=== PATIENT | male | born 1950 | race Two or more races ===

== ENCOUNTER 2018-10-10 15:10 | Emergency (ER) | payer MEDICARE, OTHER ==
[~2018-10-10] VITALS: Ht 162.6 cm; Wt 61.2 kg
--- NOTE | 2018-10-10 15:38 | NUR ---
ED Nurse Note: PT WAS ABLE TO BE TRIAGED AT THIS TIME DUE TO DELAY REGISTRATION SIGN UP FROM PT.
[2018-10-10 15:40] VITALS: BP 138/86
--- NOTE | 2018-10-10 15:40 | NUR ---
ED Nurse Note: PT WALKED IN TO ER TODAY FROM HOME. AOX4. PT IS [place] SPEAKING BUT CAME IN TO ER TODAY WITH A NOTE FROM DR. ANDREW CHERRY STATING PT C/O CONSTIPATION X 10 DAYS ALONG WITH DIZZINESS AND UNSTEADY GAIT. PT AMBULATED IN TO ER TODAY WITH STEADY GAIT. HYPOACTIVE BOWEL SOUNDS IN ALL QUADRANTS. ABDOMEN NONDISTENDED AND NONTENDER TO PALPATION. LAST BM X 7 DAYS. PT DENIES NAUSEA, VOMITING, DIARRHEA. PT STATES HE HAS BEEN EATING WELL BUT HAS BEEN UNABLE TO PASS BM.
[2018-10-10] MEDS ORDERED: Isovue-300 100ml vial INJ PRN (15:45)
--- NOTE | 2018-10-10 16:04 | NUR ---
ED Nurse Note: RADIOLOGY AT BEDSIDE WITH READI-CAT. READI-CAT CONSUMED. RADIOLOGY WILL RETURN IN 1.5 HOURS.
[2018-10-10 16:07] LABS: BASOPHILS % (AUTO) 1.4 % (0.0-2.0); EOSINOPHILS % (AUTO) 12.4 % (0.0-3.0); HEMATOCRIT 40.8 % (42.0-52.0); HEMOGLOBIN 13.9 G/DL (14.2-18.0); LYMPHOCYTES % (AUTO) 26.5 % (20.0-45.0); MEAN CORPUSCULAR VOLUME 90 FL (80-99); MONOCYTES % (AUTO) 7.5 % (1.0-10.0); NEUTROPHILS % (AUTO) 52.3 % (45.0-75.0); PLATELET COUNT 167 K/UL (150-450); RED BLOOD COUNT 4.55 M/UL (4.70-6.10); RED CELL DISTRIBUTION WIDTH 11.4 % (11.6-14.8); WHITE BLOOD COUNT 6.1 K/UL (4.8-10.8)
[2018-10-10 16:17] LABS: ANION GAP 6 mmol/L (5-15); BLOOD UREA NITROGEN 19 mg/dL (7-18); CALCIUM 8.7 MG/DL (8.5-10.1); CARBON DIOXIDE 30 MMOL/L (21-32); CHLORIDE 105 MMOL/L (98-107); POTASSIUM 3.9 MMOL/L (3.5-5.1); SODIUM 141 MMOL/L (136-145)
[2018-10-10 16:22] LABS: ALANINE AMINOTRANSFERASE 20 U/L (12-78); ALBUMIN 3.8 G/DL (3.4-5.0); ALBUMIN/GLOBULIN RATIO 1.1 (1.0-2.7); ALKALINE PHOSPHATASE 67 U/L (46-116); ASPARTATE AMINO TRANSFERASE 19 U/L (15-37); BILIRUBIN,TOTAL 0.3 MG/DL (0.2-1.0)
[2018-10-10 16:30] LABS: INR 1.3 (0.9-1.1)
[2018-10-10] MEDS ORDERED: Meclizine 25mg tab ORAL ONE (16:30)
--- NOTE | 2018-10-10 16:41 | NUR ---
ED Nurse Note: PT TO CT VIA [facility] FOR HEAD CT.
--- NOTE | 2018-10-10 16:48 | NUR ---
ED Nurse Note: PT BACK FROM CT VIA [facility]
--- NOTE | 2018-10-10 17:13 | Diagnostic Imaging Report ---
Indication: Headache Technique: Contiguous 5 mm thick transaxial imaging of the head obtained in a Siemens Sensation [address] scanner. Soft tissue and bone windows generated. Automatic Exposure Control was utilized. Total Dose length Product (DLP): 1386.[address] Dose Index Volume (CTDIvol): 70.38 mGy Comparison: none Findings: The size and configuration of the cortical sulci, basal cisterns, and ventricles are within normal limits for age. There is no mass effect, midline shift, or edema identified. There is no evidence of acute hemorrhage or abnormal intra-axial or extra-axial fluid collections. The bones and soft tissues are unremarkable. Impression: No mass effect, edema or acute bleed. The CT scanner at [facility] is accredited by the [employer] and the scans are performed using dose optimization techniques as appropriate to a performed exam including Automatic Exposure control.
--- NOTE | 2018-10-10 17:35 | NUR ---
ED Nurse Note: PT TO CT VIA [facility]
--- NOTE | 2018-10-10 17:47 | NUR ---
ED Nurse Note: PT BACK FROM CT [facility]IA [facility].
--- NOTE | 2018-10-10 19:18 | NUR ---
ED Nurse Note: REPORT GIVEN TO TIFFANY ARITA RN
--- NOTE | 2018-10-10 19:20 | NUR ---
ED Nurse Note: Received report from JOCELYN Strauss. Patient in bed NAD AO4 VSS. awaiting digital copies of imaging from radiology.
[2018-10-10] MEDS ORDERED: MECLIZINE HCL25 MG ORAL (19:42)
[2018-10-10 19:50] VITALS: BP 138/86
--- NOTE | 2018-10-10 19:50 | NUR ---
ED Nurse Note: Patient cleared for discharge per ERMD. AO4 NAD. VSS. Patient given prescriptions and discharge instructions; verbalized understanding. IV and ID band removed. Patient ambulated steady with all personal belongings.
--- NOTE | 2018-10-10 20:26 | Emergency Room Report ---
History of Present Illness General Chief Complaint: Constipation Source: Patient Present Illness HPI Patient is a 68-year-old male presented after increased abdominal distention associated with some increased nausea Vertigo sensation. Patient prior history of constipation. He was noted to have elevated CEA and was referred by primary care physician for further workup. Patient denies any vomiting or bloody stools. He reports having prior negative colonoscopy. Allergies: Uncoded Allergies: PENICILLIN (Allergy, Unknown, 10/10/18) Nursing Documentation-[facility] Past Medical History: No Stated History Review of Systems All Other Systems: negative except mentioned in HPI Physical Exam Vital Signs Date Time Temp Pulse Resp B/P (MAP) Pulse Ox O2 Delivery O2 Flow Rate FiO2 10/10/18 15:39 98.2 71 16 144/90 96 Room Air Sp02 EP Interpretation: reviewed, normal General Appearance: normal inspection, well appearing, no apparent distress, alert, GCS 15 Head: atraumatic ENT: normal ENT inspection, hearing grossly normal, normal voice Neck: normal inspection, full range of motion, supple, no bony tend Respiratory: normal inspection, lungs clear, normal breath sounds, no respiratory distress, no retraction, no wheezing Cardiovascular #1: regular rate, rhythm, no edema Gastrointestinal: normal inspection, normal bowel sounds, non tender, soft, no guarding, no hernia Genitourinary: no CVA tenderness Musculoskeletal: normal inspection, back normal, normal range of motion Neurologic: normal inspection, alert, oriented x3, responsive, 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 Patient presented for abdominal pain and elevated CEA. Differential diagnosis include was not limited to tumor, vertigo, intracranial hemorrhage, benign positional vertigo among others. Because of complexity of patient's case laboratory testing and imaging studies were ordered. Laboratory studies were unremarkable. Patient was noted to have CT imaging of the abdomen pelvis read by radiology which showed adrenal adenoma without evident bowel obstruction. Patient was advised of CT findings and was advised to follow-up with his primary care physician for further workup of abnormal laboratory testing.Patient was advised to return if he began having worsening pain persistent vomiting or other concerns Labs Test 10/10/18 16:00 White Blood Count 6.1 K/UL (4.8-10.8) Red Blood Count 4.55 M/UL (4.70-6.10) Hemoglobin 13.9 G/DL (14.2-18.0) Hematocrit 40.8 % (42.0-52.0) Mean Corpuscular Volume 90 FL (80-99) Mean Corpuscular Hemoglobin 30.6 PG (27.0-31.0) Mean Corpuscular Hemoglobin Concent 34.1 G/DL (32.0-36.0) Red Cell Distribution Width 11.4 % (11.6-14.8) Platelet Count 167 K/UL (150-450) Mean Platelet Volume 6.3 FL (6.5-10.1) Neutrophils (%) (Auto) 52.3 % (45.0-75.0) Lymphocytes (%) (Auto) 26.5 % (20.0-45.0) Monocytes (%) (Auto) 7.5 % (1.0-10.0) Eosinophils (%) (Auto) 12.4 % (0.0-3.0) Basophils (%) (Auto) 1.4 % (0.0-2.0) Prothrombin Time 13.3 SEC (9.30-11.50) Prothromb Time International Ratio 1.3 (0.9-1.1) Activated Partial Thromboplast Time 29 SEC (23-33) Sodium Level 141 MMOL/L (136-145) Potassium Level 3.9 MMOL/L (3.5-5.1) Chloride Level 105 MMOL/L (98-107) Carbon Dioxide Level 30 MMOL/L (21-32) Anion Gap 6 mmol/L (5-15) Blood Urea Nitrogen 19 mg/dL (7-18) Creatinine 1.0 MG/DL (0.55-1.30) Estimat Glomerular Filtration Rate > 60 mL/min (>60) Glucose Level 104 MG/DL (74-106) Calcium Level 8.7 MG/DL (8.5-10.1) Total Bilirubin 0.3 MG/DL (0.2-1.0) Aspartate Amino Transf (AST/SGOT) 19 U/L (15-37) Alanine Aminotransferase (ALT/SGPT) 20 U/L (12-78) Alkaline Phosphatase 67 U/L (46-116) Troponin I 0.000 ng/mL (0.000-0.056) Total Protein 7.3 G/DL (6.4-8.2) Albumin 3.8 G/DL (3.4-5.0) Globulin 3.5 g/dL Albumin/Globulin Ratio 1.1 (1.0-2.7) Lipase 185 U/L (73-393) Last Vital Signs Date Time Temp Pulse Resp B/P (MAP) Pulse Ox O2 Delivery O2 Flow Rate FiO2 10/10/18 15:40 98.4 74 17 138/86 99 Room Air Status: improved Disposition: HOME, SELF-CARE Condition: Stable Scripts Meclizine Hcl* (MECLIZINE*) 25 Mg Tablet 25 MG ORAL THREE TIMES A DAY, #20 TAB Prov: Rocky Christian MD 10/10/18 Patient Instructions: Vertigo Additional Instructions: Follow up with your doctor for further workup of elevated CEA. CT with adrenal adenoma. Rocky Christian MD Oct 10, 2018 20:26
--- NOTE | 2018-10-11 10:41 | Diagnostic Imaging Report ---
Indication: Abdominal pain Technique: Continuous helical transaxial imaging of the abdomen and pelvis was obtained from the lung bases to the pubic symphysis during intravenous contrast administration. Coronal 2-D reformats were also obtained. Study obtained in a Siemens sensation [address] Automatic Exposure Control was utilized. Total Dose length Product (DLP): 620.[address] Dose Index Volume (CTDIvol): 11.42 mGy Comparison: None Findings: There is a dependent mild atelectasis at the lung bases demonstrated. There are a few small nodules demonstrated at both lung bases. The nodules are small measuring 5 mm or less. Recommend further evaluation with CT chest. The liver is unremarkable. Gallbladder is slightly contracted. The spleen and pancreas both kidneys appear unremarkable. Aortoiliac calcifications are present, mild in degree. There is no free fluid or free air. Normal retrocecal appendix demonstrated. Small bilateral inguinal hernias containing fat noted. Accessory spleen demonstrated. The urinary bladder is mildly distended. There is an incidental 1.7 cm low-density left adrenal mass most likely an adenoma. Follow-up and/or MRI suggested. IMPRESSION: No acute findings demonstrated in the abdomen or pelvis. Bilateral inguinal hernia containing fat. Accessory spleen Normal appendix Mildly distended urinary bladder. 1.7 cm low-density left adrenal mass, nonspecific but probably representing adenoma. Follow-up MRI may be confirmatory. Incidental small scattered nodules at both lung bases. Further evaluation with CT chest is recommended especially in light of the elevated CEA. This finding was not initially communicated on the preliminary reading. This was subsequently conveyed to the emergency room physician Dr. Tovar at 10:30 AM 10/11/2018. The CT scanner at [facility] is accredited by the [employer] and the scans are performed using dose optimization techniques as appropriate to a performed exam including Automatic Exposure control.
--- NOTE | 2018-10-11 18:03 | Cardiology Report ---
APPROVED REPORT EKG Measurement Heart [id number] Normal sinus rhythm Normal ECG
== END 2018-10-10 19:50 | disposition home or self-care (01) ==
LOC: EMR 16:53
DX: K59.00 Constipation, unspecified (principal); R42 Dizziness and giddiness; D35.02 Benign neoplasm of left adrenal gland; K40.20 Bilateral inguinal hernia, without obstruction or gangrene, not specified as recurrent
CPT/HCPCS: 36415; 70450; 74177; 80053; 83690; 84484; 85025; 85610; 85730; 86850; 86900; 86901; 93005; 99284; Q9967